=== PATIENT | female | born 1955 | race Caucasian/White ===

== ENCOUNTER 2016-11-12 11:35 | Emergency (ER) ==
[2016-11-12 11:52] VITALS: BP 123/80; TEMP 99; BMI 33.1
--- NOTE | 2016-11-12 11:57 | ED.PDOC ---
General ED Provider: Dr. ROBERTO BRITO JR Chief Complaint: Extremity Swelling/Pain Stated Complaint: RIGHT LOWER LEG PAIN STARTING SATURDAY NIGHT WITH SWELLING IN RIGHT LOWER LEG STARTING SATURDAY NIGHT. HAD BEEN SITTING AND DRIVING.[ End ] 99.0 93 16 98% 123/80 910 R LOWER LEG PAIN[ End ] Time Seen by Physician: 11:50 Mode of Arrival: Walk-In Information Source: Patient Exam Limitations: No limitations Nursing and Triage Documentation Reviewed and Agree: No Review of Systems - Review Of Systems Constitutional: Reports: Malaise, Weakness Eyes: Reports: No symptoms Ears, Nose, Mouth, Throat: Reports: No symptoms Respiratory: Reports: No symptoms Cardiac: Reports: No symptoms GI: Reports: No symptoms : Reports: No symptoms Musculoskeletal: Reports: Other (pain swelling weakness in legs tight greater than left) Skin: Reports: Change in color (dorsaolateral ankle hyperemia) Neurological: Reports: No symptoms Endocrine: Reports: No symptoms Hematologic/Lymphatic: Reports: No symptoms All Other Systems: Other Past Medical History - Past Medical History Endocrine: Reports: None Cardiovascular: Reports: [place], Other (CARDIAC ABLASION,) Respiratory: Reports: COPD, Asthma Hematological: Reports: None Gastrointestinal: Reports: GERD Genitourinary: Reports: None Neuro/Psych: Reports: Migraine, Depression Musculoskeletal: Reports: None Cancer: Reports: None Last Menstrual Period: NA Other Pertinent Past Medical History: FIBROMYLAGIA, [employer], IBS , RLS - Surgical History General Surgical History: Reports: Hysterectomy, Cholecystectomy, Other (KIDNEY SCOPE, ENDOSCOPY, HYSTERECTOMY, BLADDER SURGERY, BILATERAL CATARACT SURGERY) - Family History Family History: Reports: Unknown - Social History Smoking Status: Never smoker Hx Substance Use: No Alcohol Screening: None Physical Exam - Physical Exam Appearance: Ill-appearing Ill-appearing: Moderate Pain Distress: Moderate Eyes: SAMANTHA ENT: Ears normal, Nose normal, Oropharynx normal Neck: Supple Respiratory: Airway patent, Breath sounds clear, Breath sounds equal, Respirations nonlabored Cardiovascular: RRR, Pulses normal, No rub, No murmur GI/: Soft, Nontender, No masses, Bowel sounds normal, No Organomegaly Musculoskeletal: Normal strength, Limited strength, Edema, Calf tenderness Skin: Warm, Dry, Normal color Neurological: Sensation intact Psychiatric: Affect appropriate, Mood appropriate Interpretation - Radiology Interpretation Radiology Interpretation By: Radiologist Radiology Results: Negative Exam Interpreted: CXR, Other (no thrombus on ultrasound) - EKG Interpretation Time of EKG #1: 12:15 Rate: Normal Rhythm: Sinus Ectopy: None [place]: [place] ST Segment: Normal Critical Care Note - Critical Care Note Total Time (mins): 20 Course - Course Hematology/Chemistry: 11/12/16 12:04 11/12/16 12:04 Orders, Labs, Meds: Lab Review 11/12/16 12:04 WBC 6.95 RBC 4.41 Hgb 11.7 L Hct 35.8 L MCV 81.2 MCH 26.5 L MCHC 32.7 RDW Coeff of Rachana 15.9 H Plt Count 346 Immature Gran % (Auto) 0.4 Neut % (Auto) 61.3 Lymph % (Auto) 24.5 [place] % (Auto) 7.2 Eos % (Auto) 5.9 Baso % (Auto) 0.7 Immature Gran # (Auto) 0.0 Neut # 4.3 Lymph # 1.7 [place] # 0.5 Eos # 0.4 Baso # 0.1 D-Dimer 0.51 Sodium 141 Potassium 3.7 Chloride 106 Carbon Dioxide 27 Anion Gap 11.7 BUN 9 Creatinine 0.92 Estimated GFR (MDRD) 62.00 BUN/Creatinine Ratio 9.78 Glucose 117 H Calcium 8.9 Total Bilirubin 0.26 AST 23 ALT 27 Alkaline Phosphatase 129 Total Creatine Kinase 202 CK-MB (CK-2) 0.9 CK-MB (CK-2) % 0.61442 Troponin I < 0.0100 B-Natriuretic Peptide 111 H Total Protein 6.2 Albumin 3.1 L Globulin 3.1 Albumin/Globulin Ratio 1.00 Orders Category Date Time Status EKG-(ED ONLY) Stat CARDIO 11/12/16 11:54 Completed ED IV/MEDIPORT/POWERPORT .ONCE EMERGENCY 11/12/16 11:54 Active B-TYPE NATRIURETIC PEPTIDE Stat LAB 11/12/16 12:04 Completed CBC W/ AUTO DIFF Stat LAB 11/12/16 12:04 Completed COMPREHENSIVE METABOLIC PANEL Stat LAB 11/12/16 12:04 Completed CREATINE KINASE Stat LAB 11/12/16 12:04 Completed D-DIMER Stat LAB 11/12/16 12:04 Completed TROPONIN I Stat LAB 11/12/16 12:04 Completed 0.9 % Sodium Chloride [Saline Flush] MEDS 11/12/16 11:54 Discontinued 1 syr IVF PRN PRN CHEST, 2 VIEWS PA & LAT Stat RADS 11/12/16 12:17 Completed U/S VENOUS SCAN ALMITA LEGS Stat RADS 11/12/16 12:08 Completed Medications Discontinued Medications Generic Name Dose Route Start Last Admin Trade Name Freq PRN Reason Stop Dose Admin Sodium Chloride 1 syr 11/12/16 11:54 Saline Flush IVF PRN PRN To flush IV Vital Signs: Temp Pulse Resp BP Pulse Ox 11/12/16 11:38 99 F 93 H 16 123/80 98 [place] Risk Score [place] Risk Score: Risk Score Odds of by 30D 0 0.1 (0.1-0.2) 1 0.3 (0.2-0.3) 2 0.4 (0.3-0.5) 3 0.7 (0.6-0.9) 4 1.2 (1.0-1.5) 5 2.2 (1.9-2.6) 6 3.0 (2.5-3.6) 7 4.8 (3.8-6.1) Departure - Departure Time of Disposition: 14:09 Disposition: HOME SELF-CARE Discharge Problem: Edema of the upper extremity Instructions: Leg Edema (ED) Condition: Good Pt referred to PMD for follow-up: Yes Additional Instructions: elevate legs twice a day for two hours each time walk 100 to 200 yards daily to move fluids out recheck PMD one week may take home medications for pain Allergies/Adverse Reactions: Allergies hydrocodone bitartrate [From Vicodin] Adverse Reaction (Verified 11/12/16 11:38) iodine Adverse Reaction (Verified 11/12/16 11:38) pregabalin [From Lyrica] Adverse Reaction (Verified 11/12/16 11:38) Home Medications: Ambulatory Orders Citalopram Hydrobromide [Celexa] 20 mg PO BEDTIME 09/03/13 Dicyclomine HCl [Bentyl] 10 mg PO DAILY 09/03/13 Gabapentin [Neurontin] 600 mg PO TID 09/03/13 Hydroxyzine HCl [Atarax] 25 mg PO BID PRN 09/03/13 Loperamide HCl [Imodium] 2 mg PO DAILY PRN 09/03/13 Lorazepam [Ativan] 1 mg PO BEDTIME 09/03/13 Montelukast Sodium [Singulair] 10 mg PO BEDTIME 09/03/13 Naproxen 500 mg PO BID PRN 09/03/13 Oxybutynin Chloride [Ditropan Xl] 10 mg PO DAILY 09/03/13 Sucralfate 1 gm PO BID 09/03/13 Sumatriptan Succinate [Imitrex] 6 mg SQ BID PRN 09/03/13 Sumatriptan Succinate [Imitrex] 100 mg PO BID 09/03/13 Trazodone HCl 300 mg PO BEDTIME 09/03/13 Zinc 200 mg PO BID PRN 09/03/13 Epinephrine [Epipen 2-Jose F] 0.3 mg IM PRN PRN 03/16/14 Meclizine HCl [Antivert] 12.5 mg PO BID 03/16/14 Amlodipine Besylate 5 mg PO DAILY 02/27/16 Aspirin [Ecotrin] 81 mg PO DAILY 02/27/16 Cyclobenzaprine HCl [Flexeril] 10 mg PO PRN PRN 02/27/16 Metoprolol Tartrate [Lopressor] 25 mg PO DAILY 02/27/16 Omeprazole [Prilosec] 40 mg PO BID 02/27/16 Oxycodone HCl/Acetaminophen [Percocet 10-325 mg Tablet] 10 mg PO TID PRN Ranitidine HCl [Zantac] 150 mg PO QDAC 02/27/16 Zolpidem Tartrate [Ambien] 2.5 mg PO BEDTIME 02/27/16 Cetirizine HCl [Zyrtec] 10 mg PO DAILY 11/12/16 Mometasone Furoate [Asmanex Hfa] 2 inhaler IH BID 11/12/16 Pseudoephedrine HCl [Sudafed] 120 mg PO ONCE 11/12/16
[2016-11-12 12:10] LABS: BASOPHILS # (AUTO) 0.1 K/uL (0-0.2); BASOPHILS % (AUTO) 0.7 % (0.0-3.0); EOSINOPHILS # (AUTO) 0.4 K/ul (0.0-0.7); EOSINOPHILS % (AUTO) 5.9 % (0.0-7.0); HEMATOCRIT 35.8 % (37.0-47.0); HEMOGLOBIN 11.7 g/dl (12.0-16.0); IMMATURE GRANULOCYTE % (AUTO) 0.4 % (0.0-5.0); LYMPHOCYTES # (AUTO) 1.7 K/uL (0.60-3.4); LYMPHOCYTES % (AUTO) 24.5 (10.0-50.0); MEAN CORPUSCULAR HEMOGLOBIN 26.5 pg (27.0-31.0); MEAN CORPUSCULAR HGB CONC 32.7 (31.8-35.4); MEAN CORPUSCULAR VOLUME 81.2 fl (81.0-99.0); MONOCYTES # (AUTO) 0.5 K/uL (0.4-2.0); MONOCYTES % (AUTO) 7.2 (0-10); NEUTROPHILS # (AUTO) 4.3 K/ul (2.0-6.9); NEUTROPHILS % (AUTO) 61.3; PLATELET COUNT 346 10^3/uL (140-440); RED BLOOD COUNT 4.41 10^6/ul (4.20-5.40); WHITE BLOOD COUNT 6.95 K/ul (4.6-10.2)
[2016-11-12 12:58] LABS: ALANINE AMINOTRANSFERASE 27 U/L (12-78); ALBUMIN 3.1 g/dL (3.4-5.0); ALKALINE PHOSPHATASE 129 U/L (53-141); ANION GAP 11.7; ASPARTATE AMINO TRANSFERASE 23 U/L (15-37); BILIRUBIN,TOTAL 0.26 mg/dL (0.00-1.20); BLOOD UREA NITROGEN 9 mg/dL (7-18); BUN/CREATININE RATIO 9.78; CALCIUM 8.9 mg/dL (8.2-10.2); CARBON DIOXIDE 27 mmol/L (23-31); CHLORIDE 106 mmol/L (98-107); CREATINE KINASE 202 U/L; CREATININE 0.92 mg/dL (0.60-1.30); GLUCOSE 117 mg/dL (82-115); POTASSIUM 3.7 mmol/L (3.5-5.10); SODIUM 141 mmol/L (136-145); TOTAL PROTEIN 6.2 g/dL (5.8-8.1)
--- NOTE | 2016-11-12 12:59 | DI ---
Examination: Two radiographic images of the chest. Comparison: 03/16/2014. Reason for study: Cough FINDINGS: No pneumothorax, pleural effusion, or focal consolidation. The cardiac silhouette is not enlarged. Atherosclerotic disease is seen within the aorta. Impression: No acute cardiopulmonary findings.
[2016-11-12 13:00] LABS: CREATINE KINASE MB 0.9 ng/ml (0.0-3.6)
--- NOTE | 2016-11-12 13:03 | US ---
EXAM: Bilateral lower extremity venous Doppler HISTORY: Concern for DVT leg swelling after trip. COMPARISON: None TECHNIQUE: Sonographic and Doppler evaluation of the bilateral lower extremity vessels from the com mon femoral through the anterior tibial veins were obtained. Augmentation and compression technique s were also performed. FINDINGS: There is spontaneous Doppler flow seen in the bilateral lower extremity veins from the co mmon femoral through the anterior tibial veins. There is normal compression and augmentation throug hout the lower extremity veins. There is no visualized reflux. Sonographic appearance of the soft tissues are unremarkable. IMPRESSION: No lower extremity thrombus
== END 2016-11-12 14:35 | disposition home or self-care (01) ==
LOC: ED 11:35
DX: R60.0 Localized edema (principal); M79.661 Pain in right lower leg; Z79.899 Other long term (current) drug therapy
CPT/HCPCS: 36415; 80053; 82550; 82553; 83880; 84484; 85025; 85379; 93005; 93010; 99283

== ENCOUNTER 2016-12-19 13:17 | Outpatient (CLI) ==
[2016-12-19 13:53] LABS: BASOPHILS # (AUTO) 0.1 K/uL (0-0.2); BASOPHILS % (AUTO) 0.7 % (0.0-3.0); EOSINOPHILS # (AUTO) 0.3 K/ul (0.0-0.7); EOSINOPHILS % (AUTO) 3.1 % (0.0-7.0); HEMATOCRIT 39.9 % (37.0-47.0); HEMOGLOBIN 13.2 g/dl (12.0-16.0); IMMATURE GRANULOCYTE % (AUTO) 0.3 % (0.0-5.0); LYMPHOCYTES # (AUTO) 1.5 K/uL (0.60-3.4); LYMPHOCYTES % (AUTO) 17.2 (10.0-50.0); MEAN CORPUSCULAR HEMOGLOBIN 26.6 pg (27.0-31.0); MEAN CORPUSCULAR HGB CONC 33.1 (31.8-35.4); MEAN CORPUSCULAR VOLUME 80.4 fl (81.0-99.0); MONOCYTES # (AUTO) 0.5 K/uL (0.4-2.0); MONOCYTES % (AUTO) 5.7 (0-10); NEUTROPHILS # (AUTO) 6.5 K/ul (2.0-6.9); PLATELET COUNT 396 10^3/uL (140-440); RED BLOOD COUNT 4.96 10^6/ul (4.20-5.40); WHITE BLOOD COUNT 8.95 K/ul (4.6-10.2)
[2016-12-19 14:00] LABS: BILIRUBIN,URINE Negative (NEGATIVE); KETONES,URINE Negative (NEGATIVE); LEUKOCYTE ESTERASE ,URINE Trace (NEGATIVE); NITRITE,URINE Negative (NEGATIVE); PH,URINE 5.5 (5-9); PROTEIN,URINE 1+ (NEGATIVE); URINE, BLOOD Negative (NEGATIVE)
[2016-12-19 14:12] LABS: ADD URINE MICROSCOPIC YES
[2016-12-19 14:44] LABS: ALBUMIN 3.8 g/dL (3.4-5.0); ALBUMIN/GLOBULIN RATIO 0.97; ANION GAP 15.6; BILIRUBIN,TOTAL 0.33 mg/dL (0.00-1.20); BUN/CREATININE RATIO 9.52; CREATININE 1.26 mg/dL (0.60-1.30); FERRITIN 59.88 ng/mL (4.63-204.00); MAGNESIUM 2.1 mg/dL (1.7-2.2); PHOSPHORUS 3.1 mg/dL (2.8-4.1); POTASSIUM 3.6 mmol/L (3.5-5.10); TOTAL PROTEIN 7.7 g/dL (5.8-8.1); URIC ACID 4.8 mg/dL (2.4-6.0)
[2016-12-21 10:31] LABS: URINE MALB/CR RATIO 11.2 mg/g creat (0.0-30.0)
== END 2016-12-19 13:18 | disposition home or self-care (01) ==
LOC: LAB 13:17
PROVIDERS: ATTEND Internal Medicine Nephrology
DX: N18.3 Chronic kidney disease, stage 3 (moderate) (principal); D63.1 Anemia in chronic kidney disease; I15.1 Hypertension secondary to other renal disorders; N25.81 Secondary hyperparathyroidism of renal origin; Z79.899 Other long term (current) drug therapy
CPT/HCPCS: 36415; 80053; 81001; 82043; 82570; 82607; 82728; 83540; 83550; 83735; 83970; 84100; 84156; 84550; 85025; 87086

== ENCOUNTER 2017-02-06 14:58 | Outpatient (CLI) | payer OTHER ==
[2017-02-06 15:34] LABS: BASOPHILS # (AUTO) 0.1 K/uL (0-0.2); EOSINOPHILS # (AUTO) 0.4 K/ul (0.0-0.7); HEMATOCRIT 39.8 % (37.0-47.0); IMMATURE GRANULOCYTE % (AUTO) 0.5 % (0.0-5.0); LYMPHOCYTES % (AUTO) 22.8 (10.0-50.0); MEAN CORPUSCULAR HGB CONC 32.7 (31.8-35.4); MEAN CORPUSCULAR VOLUME 79.6 fl (81.0-99.0); MONOCYTES # (AUTO) 0.7 K/uL (0.4-2.0); MONOCYTES % (AUTO) 7.6 (0-10); NEUTROPHILS # (AUTO) 5.7 K/ul (2.0-6.9); NEUTROPHILS % (AUTO) 64.1; PLATELET COUNT 396 10^3/uL (140-440); WHITE BLOOD COUNT 8.85 K/ul (4.6-10.2)
[2017-02-06 15:38] LABS: BILIRUBIN,URINE Negative (NEGATIVE); KETONES,URINE Trace (NEGATIVE); LEUKOCYTE ESTERASE ,URINE Trace (NEGATIVE); NITRITE,URINE Negative (NEGATIVE); PH,URINE 5.5 (5-9); PROTEIN,URINE Negative (NEGATIVE); URINE, BLOOD Negative (NEGATIVE)
[2017-02-06 15:55] LABS: ADD URINE MICROSCOPIC YES
[2017-02-06 15:56] LABS: ALBUMIN 3.7 g/dL (3.4-5.0); ALBUMIN/GLOBULIN RATIO 1.06; ANION GAP 13.1; BACTERIA,URINE TRACE (NOT PRESENT); BILIRUBIN,TOTAL 0.22 mg/dL (0.00-1.20); CALCIUM 9.7 mg/dL (8.2-10.2); MAGNESIUM 2.5 mg/dL (1.7-2.2); PHOSPHORUS 3.5 mg/dL (2.8-4.1); POTASSIUM 4.1 mmol/L (3.5-5.10); TOTAL PROTEIN 7.2 g/dL (5.8-8.1)
[2017-02-06 15:57] LABS: BUN/CREATININE RATIO 12.38; CREATININE 1.05 mg/dL (0.60-1.30); URIC ACID 4.9 mg/dL (2.4-6.0)
[2017-02-06 16:13] LABS: ERYTHROCYTE SEDIMENTATION RATE 48 mm/hr (0-20); ESR INTERNAL QC INTERNAL QC VALID
[2017-02-07 09:25] LABS: C-REACTIVE PROTEIN 17.2 mg/L (0.0-4.9)
[2017-02-07 15:22] LABS: A/G RATIO 1.1 (0.7-1.7); ALPHA-1 GLOBULIN 0.3 g/dL (0.0-0.4); BETA GLOBULIN 1.2 g/dL (0.7-1.3); GAMMA GLOBULIN 0.8 g/dL (0.4-1.8); TOTAL GLOBULINS 3.2 g/dL (2.2-3.9)
[2017-02-08 16:00] LABS: IMMUNOGLOBULIN M, QN, SERUM 233 mg/dL (26-217)
[2017-02-08 16:01] LABS: M-SPIKE 0 g/dL (Not Observed)
== END 2017-02-06 14:59 | disposition home or self-care (01) ==
LOC: LAB 14:58
PROVIDERS: ATTEND Internal Medicine Nephrology
DX: N18.3 Chronic kidney disease, stage 3 (moderate) (principal); D63.1 Anemia in chronic kidney disease; I12.9 Hypertensive chronic kidney disease with stage 1 through stage 4 chronic kidney disease, or unspecified chronic kidney disease; N25.81 Secondary hyperparathyroidism of renal origin; R29.898 Other symptoms and signs involving the musculoskeletal system; N11.9 Chronic tubulo-interstitial nephritis, unspecified; Z79.899 Other long term (current) drug therapy
CPT/HCPCS: 36415; 80053; 81001; 83735; 84100; 84165; 84550; 85025; 85651; 86038; 86140; 86320; 87086; 87205

== ENCOUNTER 2017-09-04 13:06 | Outpatient (CLI) | END 2017-09-04 13:07 | disposition home or self-care (01) | LOC: LAB 13:06 | PROVIDERS: ATTEND Nurse Practitioner | DX: E78.2 Mixed hyperlipidemia (principal); F41.9 Anxiety disorder, unspecified; G43.909 Migraine, unspecified, not intractable, without status migrainosus; G47.00 Insomnia, unspecified; I10 Essential (primary) hypertension; K21.9 Gastro-esophageal reflux disease without esophagitis; M60.80 Other myositis, unspecified site | CPT/HCPCS: 36415; 80053; 80061; 81001; 82248; 84100; 84443; 85025 ==

== ENCOUNTER 2018-03-14 14:36 | Outpatient (CLI) ==
--- NOTE | 2018-03-14 15:20 | DI ---
EXAM: PA and lateral views of the chest HISTORY: Cough. COMPARISON: Chest x-ray 11/20/2016 and multiple priors FINDINGS: The cardiomediastinal silhouette is normal. There is no pneumothorax or pleural effusion. There is no consolidation, nodule or mass. The osseous structures are unremarkable. IMPRESSION: No acute cardiopulmonary process
== END 2018-03-14 14:37 | disposition home or self-care (01) ==
LOC: LAB 14:36
PROVIDERS: ATTEND Nurse Practitioner
DX: E78.2 Mixed hyperlipidemia (principal); F32.9 Major depressive disorder, single episode, unspecified; F41.9 Anxiety disorder, unspecified; G43.909 Migraine, unspecified, not intractable, without status migrainosus; G89.29 Other chronic pain; I10 Essential (primary) hypertension; L50.8 Other urticaria; M60.80 Other myositis, unspecified site; R05 Cough
CPT/HCPCS: 36415; 80053; 80061; 81001; 84443; 84550; 85025; 86677

== ENCOUNTER 2018-07-01 12:11 | Outpatient (CLI) ==
--- NOTE | 2018-07-01 20:50 | MRI ---
EXAM: Lumbar spine MRI without contrast. HISTORY: Lumbar disc degeneration. COMPARISON: CT abdomen and pelvis 01/28/[address] scan 03/11/2009. TECHNIQUE: Multiplanar, multisequence MR images were acquired of the lumbar spine without contrast. FINDINGS: Conus medullaris ends at L1-2 and has normal morphology and signal intensity. Canal diame ter is developmentally narrow. Five non-rib bearing lumbar vertebra are present. There is mild lumb ar dextroscoliosis centered at L3-4 and 1.5 mm retrolisthesis of L2 on L3 and 2 mm retrolisthesis of L5 on S1. The superior endplate of S1 is smaller than the inferior endplate of L5. There is a diffu se disc osteophyte complex at L5-S1 with moderate disc space narrowing, mild endplate irregularity an d mild modic type 2 endplate changes. A moderate benign intraosseous hemangioma is present at L2. T here is desiccation of the lumbar intervertebral discs. The partially visualized liver, spleen and kidneys are unremarkable. There are no paravertebral mass es. L1-2: There is a minor posterior disc bulge. There is no central canal stenosis or foraminal stenos is. L2-3: There is a mild disc bulge that is asymmetric to the right with a small to moderate central di sc extrusion that extends above and below the disc level. There is minor right and mild left facet a rthropathy. This produces minor right greater than left neural foraminal stenosis. There is no cent ral canal stenosis. L3-4: There is a mild disc bulge that is asymmetric to the right which minimally narrows the inferio r right neural foramen and a tiny central disc protrusion and annular tear that minimally effaces the ventral thecal sac without central canal stenosis. Mild right and moderate left hypertrophic facet arthropathy is present. There is minor bilateral foraminal stenosis. L4-5: There is a minor disc bulge and small central disc protrusion and annular tear. Moderate bila teral hypertrophic facet arthropathy and ligamentum flavum hypertrophy is present and there is minor right and mild left neural foraminal stenosis. AP diameter of the thecal sac is 9.8 mm. L5-S1: There is a diffuse disc osteophyte complex that effaces the ventral thecal sac, narrows the i nferior neural foramina bilaterally and encroaches on both exiting L5 nerves. Mild bilateral hypertr ophic facet arthropathy and ligamentum flavum hypertrophy is present and there is mild to moderate le ft and mild right neural foraminal stenosis. There is mild tapering of the thecal sac which is small at this level and measures 8.4 mm in AP diameter. IMPRESSION: 1. Mild lumbar degenerative spondylosis without spinal stenosis. 2. Small to moderate central disc extrusion L2-3, tiny central disc protrusion L3-4 and small centra l disc protrusion L4-5. 3. Mild mid lumbar dextroscoliosis centered at L3-4.
== END 2018-07-01 12:12 | disposition home or self-care (01) ==
LOC: RAD 12:11
PROVIDERS: ATTEND Pain Medicine Interventional Pain Medicine
DX: M51.17 Intervertebral disc disorders with radiculopathy, lumbosacral region (principal); M48.07 Spinal stenosis, lumbosacral region; M47.27 Other spondylosis with radiculopathy, lumbosacral region; M51.37 Other intervertebral disc degeneration, lumbosacral region

== ENCOUNTER 2018-07-05 15:00 | Outpatient (CLI) | payer OTHER | END 2018-07-05 15:17 | disposition short-term general hospital (02) | LOC: AMBL 15:00 | PROVIDERS: ATTEND Internal Medicine Geriatric Medicine | DX: R07.9 Chest pain, unspecified (principal); M79.602 Pain in left arm; M79.601 Pain in right arm; R51 Headache; F41.9 Anxiety disorder, unspecified; M79.7 Fibromyalgia ==

== ENCOUNTER 2018-10-06 11:08 | Outpatient (CLI) | payer OTHER ==
[2018-07-23 12:14] VITALS: BMI 33.8
== END 2018-10-06 11:09 | disposition home or self-care (01) ==
LOC: LAB 11:08
PROVIDERS: ATTEND Nurse Practitioner
DX: F41.9 Anxiety disorder, unspecified (principal); L30.9 Dermatitis, unspecified; N32.81 Overactive bladder; R10.9 Unspecified abdominal pain; R31.9 Hematuria, unspecified; R32 Unspecified urinary incontinence; R39.9 Unspecified symptoms and signs involving the genitourinary system; R73.9 Hyperglycemia, unspecified; R74.8 Abnormal levels of other serum enzymes
CPT/HCPCS: 36415; 80053; 80074; 83036; 85008; 85025

== ENCOUNTER 2018-11-04 10:07 | Outpatient (CLI) ==
[2018-07-23 12:14] VITALS: BMI 33.8
--- NOTE | 2018-11-04 11:22 | DI ---
EXAM: Three views of the cervical spine. History: Cervical spine disc degeneration. Findings: No acute fracture or subluxation of the cervical spine. No prevertebral soft tissue swell ing. Predental space is not widened. Mild to moderate disc space narrowing at C5-6 and C6-7 with pr ominent anterior osteophytes. Multilevel bilateral uncovertebral and facet hypertrophy. Impression: 1. No acute osseous abnormality of the cervical spine. 2. Degenerative changes
--- NOTE | 2018-11-04 11:23 | DI ---
EXAM: Three views of the thoracic spine. History: Thoracic back pain. Findings: Atherosclerotic vascular calcifications. No acute fracture or subluxation of the thoracic spine. Mild to moderate multilevel disc space narrowing with endplate sclerosis and osteophyte form ation. Impression: 1. No acute osseous abnormality of the thoracic spine. 2. Mild to moderate degenerative disc disease
--- NOTE | 2018-11-04 14:43 | MRI ---
EXAM: MRI cervical spine without IV contrast. DATE: 04 November 2018. HISTORY: Cervical disc degeneration. Neck pain. TECHNIQUE: Sagittal and axial T1W and T2W sequences of the cervical spine along with sagittal IR and coronal T2W sequences were obtained using 1.2 Melly magnet. No IV contrast. COMPARISON: C-spine series 11/04/2018. T-spine series [address] C-spine 03/11/2009. FINDINGS: Mild rightward curvature the mid cervical spine is observed. No acute c-spine fracture, s ubluxation, osseous malignancy, or jumped facet is apparent. Cervical vertebra are normal in height. T1W bone marrow signal is heterogeneously bright due to areas of fatty infiltration. Prominent ost eophytes are identified at C5-6 and C6-7. Mild/moderate C5-6 and minor C6-7 disc space narrowing is evident. T2W/IR bright, T1W dark, 2.4 x 3.5 mm focus in the C7 vertebral body correlates with a luce nt area on 2009 CT scan. Cervical spinal canal appears narrow at C3 through C6 levels. No cervical or upper thoracic cord edema, syrinx, myelomalacia, or neoplasm is revealed. Visible brainstem unremarkable. There is no Chiari 1 malformation. No mastoid disease is detected. No thyroid or submandibular gland neoplasm is evident. Small pituitary gland. A T2W bright, T1W da rk, 3.5 0.22 mm focus in the superficial lobe left parotid gland may be a benign lymph node. Bilater al parotid gland fatty infiltration is noted. Trachea, larynx, and epiglottis are normal. No suspic ious neck mass, cervical lymphadenopathy, apical lung mass, pneumonia, or pleural effusion is demonst rated. Small area (8 x 3.5 mm) near the lateral margin of the left TMJ may represent small synovial cyst. Segmental analysis: C2-3: Small posterior disc bulge (1.9 mm AP) does not contact the cord. Canal is 8.6 mm AP. Mild l eft foraminal stenosis is due to uncinate hypertrophy and mild left facet arthropathy. C3-4: Broad posterior disc/osteophyte complex (3 mm AP) flattens the cord anteriorly. Canal is 6.7 mm AP. Minor bilateral foraminal narrowing is due to uncinate hypertrophy and minor/mild facet arthr opathy. C4-5: Broad posterior disc/osteophyte complex (3 mm AP) flattens the cord anteriorly. Canal is 7.3 mm AP. Mild right foraminal stenosis is due to uncinate hypertrophy and minor right facet arthropath y. There is mild left facet arthropathy. C5-6: Broad posterior disc/osteophyte complex (3.3 mm AP) flattens the cord against the posterior wa ll canal. Canal is 7.8 mm AP. Marked right and moderate left foraminal stenoses due to uncinate hyp ertrophy and minor facet disease. C6-7: Broad posterior disc/osteophyte complex (2.6 mm AP right paracentral, 1.8 mm AP midline) does not contact the cord rest. Canal is 9.4 mm AP. Marked right and moderate left foraminal stenoses ar e due to uncinate hypertrophy and minor facet disease. C7-T1: Minor posterior disc bulge (1.4 mm AP) does not contact the cord. Canal is 12.5 mm AP. Each foramen is patent. T1-2: Midline to left paracentral disc/osteophyte complex (2.2 mm AP x 11 mm transverse) contacts th e cord anteriorly. Canal is 11.4 mm AP. Minor right foraminal stenosis due to uncinate atrophy and minor right facet arthropathy. IMPRESSIONS: 1. C-spine mild dextroscoliosis, moderate spondylosis, mild facet arthropathy, and multilevel DDD. 2. Multilevel central canal stenoses (C2-3: Mild. C3-4: Marked. C4-5: Moderate. C5-6: Moderate. C6-7: Mild). 3. Multilevel cervical cord flattening. No syrinx or myelomalacia. 4. Multilevel cervical foraminal stenoses, especially C5-6 and C6-7. 5. Probable benign cyst in the C7 vertebral body. 6. Probable small synovial cyst near the left TMJ. 7. Pituitary gland is small in size. 8. Left parotid gland small T2W bright focus may represent a cyst, lymph node, or other neoplasm. C onsider ultrasound for further evaluation.
== END 2018-11-04 10:08 | disposition home or self-care (01) ==
LOC: RAD 10:07
PROVIDERS: ATTEND Pain Medicine Interventional Pain Medicine
DX: M50.323 Other cervical disc degeneration at C6-C7 level (principal); M48.02 Spinal stenosis, cervical region; M47.22 Other spondylosis with radiculopathy, cervical region; M51.34 Other intervertebral disc degeneration, thoracic region; M47.814 Spondylosis without myelopathy or radiculopathy, thoracic region